=== PATIENT | male | born 1965 | race Caucasian/White ===

== ENCOUNTER 2018-06-24 15:02 | Emergency (ER) | payer BC, OTHER ==
[~2018-06-24] VITALS: Ht 177.8 cm; Wt 81.7 kg
[2018-06-24 15:05] VITALS: BP 135/72
== END 2018-06-24 15:59 | disposition home or self-care (01) ==
LOC: ER 15:02
DX: N50.89 Other specified disorders of the male genital organs (principal); Z48.01 Encounter for change or removal of surgical wound dressing; Z98.52 Vasectomy status